=== PATIENT | female | born 1995 | race Caucasian/White ===

== ENCOUNTER 2018-10-14 12:21 | Emergency (ER) | payer OTHER ==
[2018-10-14 13:04] VITALS: BP 112/65
--- NOTE | 2018-10-14 13:08 | UC ---
Lower Extremity/Ankle HPI - HPI Summary HPI Summary: 22 yo female presents with left leg pain. She tells me that about a month ago she noticed a sudden pain to the top of her left foot. This pain lasted about 2 days and then moved to the back of her left calf. Over the last 3 weeks this pain has remained there and she has noticed a lump here as well. Painful to touch and walk. Pain worse with plantar flexion. She has taken ibuprofen with no change in her symptoms. No recent travel, OBC, or hx of cancer or blood clots. No family hx of blood clots. Denies SOB, numbness, or tingling. - History of Current Complaint Chief Complaint: UCLowerExtremity Stated Complaint: LT LEG PAIN Time Seen by Provider: 10/14/18 13:08 Hx Obtained From: Patient Hx Last Menstrual Period: 09/18/18 Onset/Duration: Gradual Onset Severity Initially: Mild Severity Currently: Mild Pain Intensity: 3 Pain Scale Used: 0-10 Numeric Aggravating Factor(s): Standing, Ambulation Able to Bear Weight: Yes - Allergies/Home Medications Allergies/Adverse Reactions: Allergies Allergy/AdvReac Type Severity Reaction Status Date / Time No Known Allergies Allergy Verified 10/14/18 13:03 Home Medications: Home Medications NK [No Home Medications Reported] 10/14/18 [History Confirmed 10/14/18] PMH/Surg Hx/FS Hx/Imm Hx - Additional Past Medical History Additional PMH: None - Surgical History Surgical History: None - Family History Known Family History: Positive: None - Social History Lives: With Family Alcohol Use: Occasionally Substance Use Type: None Smoking Status (MU): Never Smoked Tobacco Review of Systems All Other Systems Reviewed And Are Negative: Yes Constitutional: Positive: Negative Skin: Positive: Negative Respiratory: Positive: Negative Cardiovascular: Positive: Negative Gastrointestinal: Positive: Negative Neurovascular: Positive: Negative Musculoskeletal: Positive: Other: - Left calf pain Neurological: Positive: Negative Psychological: Positive: Negative Physical Exam - Summary Physical Exam Summary: GENERAL: NAD. WDWN. No pain distress. SKIN: No rashes, sores, lesions, or open wounds. CHEST: No accessory muscle use. Breathing comfortably and in no distress. CV: Pulses intact PT and DP. Cap refill <2seconds MSK: LEFT CALF: Mild TTP at contour of medial gastroc with 2.0cm area of edema. Ankle: FROM. Pain at calf with plantar flexion. Strength 5/5. No edema or obvious bony deformities. Negative talar tilt. No increased laxity. Negative Ivanhoe test. NEURO: Alert. Sensations intact and symmetric B/L LEs PSYCH: Age appropriate behavior. Triage Information Reviewed: Yes Vital Signs: Initial Vital Signs Temp 98.8 F 10/14/18 12:59 Pulse 80 10/14/18 12:59 Resp 18 10/14/18 12:59 BP 112/65 10/14/18 12:59 Pulse Ox 100 10/14/18 12:59 Vital Signs Reviewed: Yes Lower Extremity Course/Dx - Course Course Of Treatment: XR: IMPRESSION: NO EVIDENCE OF FRACTURE. US: IMPRESSION: NO EVIDENCE OF DEEP VENOUS THROMBOSIS IS IDENTIFIED. I am unsure the cause of her pain. This could be a partial gastroc tear or muscle strain/swelling. Advised her to RICE and continue ibuprofen and to f/u with Orthopedics for further evaluation. - Differential Dx/Diagnosis Provider Diagnosis: Pain of left calf Discharge - Sign-Out/Discharge Documenting (check all that apply): Patient Departure All imaging exams completed and their final reports reviewed: No Studies - Discharge Plan Condition: Stable Disposition: HOME Referrals: No Primary Care Phys,NOPCP [Primary Care Provider] - Raimundo Bauer MD [Medical Doctor] - As Soon As Possible Additional Instructions: If you develop a fever, shortness of breath, chest pain, new or worsening symptoms - please call your PCP or go to the ED. I am unsure the cause of your leg lump. Your work up today was normal. Please follow up with Orthopedics for further evaluation. - Billing Disposition and Condition Condition: STABLE Disposition: Home
== END 2018-10-14 14:45 | disposition home or self-care (01) ==
LOC: UCEAST 12:21
DX: M79.662 Pain in left lower leg (principal)
CPT/HCPCS: 99201; G0463